=== PATIENT | male | born 1955 | race Caucasian/White ===

== ENCOUNTER → 2016-09-09 | Outpatient (CLI) | payer BC ==
[~2016-09-09] MED LIST: ACETAMINOPHEN325 M1 PO; ADULT LOW DOSE81 MG PO; ALDACTONE25 MG PO; ASPIR 8181 MG PO; ATENOLOL 25 MG25 M1 PO; ATENOLOL 50 MG50 M1 PO; AZITHROMYCIN 2250 MG; CEFTRIAXONE2 G1 IVPB; CEFTRIAXONE40 MG/M1 IVPB; CELEBREX100 MG/1 C PO; CLONAZEPAM 1 MG1 M1 PO; CLONIDINE0.1 PO; COLACE100 MG PO; COUMADIN 2 MG TA2 M1; COUMADIN 2 MG TA2 M1 PO; COUMADIN 5 MG TA5 M1 PO; DYAZIDE 37.5-21 EACH PO; ENOXAPARIN40 MG/0.1 INJECTION; ENOXAPARIN40 MG/0.1 SUBQ; FELODIPINE ER10 MG PO; FEVERALL JR 32325 M1 PO; FISH OIL 1,0001 EAC5 PO; FISH OIL 1,001000 M2 PO; HYDROCODON-ACE1 EAC5; IBUPROFEN 200200 M1 PO; LIPITOR40 MG PO; LISINOPRIL20 MG PO; LISINOPRIL40 MG PO; LOVENOX40 MG/0.4 SUBQ; MIRALAX255 GM PO; MULTIVITAMINS PO; NEURONTIN 300300 M1 PO; NORCO 5-325 TA1 EACH PO; OSELB75; PERCOCET 10-321 EACH PO; POTASSIUM20 PO; SENOKOT-S1 TA1 PO; SIMVASTATIN40 MG PO; SULAR NS
== END ==
LOC: HYPER 07:02
DX: S81.801D Unspecified open wound, right lower leg, subsequent encounter (principal); I15.9 Secondary hypertension, unspecified; I87.2 Venous insufficiency (chronic) (peripheral); Z96.653 Presence of artificial knee joint, bilateral; X58.XXXD Exposure to other specified factors, subsequent encounter

== ENCOUNTER → 2016-10-09 | Outpatient (CLI) | payer BC | LOC: HYPER 08:11 | DX: I87.2 Venous insufficiency (chronic) (peripheral) (principal); L97.811 Non-pressure chronic ulcer of other part of right lower leg limited to breakdown of skin; I15.9 Secondary hypertension, unspecified; R60.0 Localized edema; R60.9 Edema, unspecified; I10 Essential (primary) hypertension ==